=== PATIENT | female | born 1990 | race Two or more races ===

== ENCOUNTER 2021-01-07 11:14 | Observation (INO) | payer MEDICAID ==
[~2021-01-07] VITALS: Ht 152.4 cm; Wt 60.8 kg
== END 2021-01-07 13:28 | disposition home or self-care (01) ==
LOC: LDRP 11:14 → EDBD 11:14
PROVIDERS: ADMIT Obstetrics & Gynecology; ATTEND Obstetrics & Gynecology
DX: O36.5930 Maternal care for other known or suspected poor fetal growth, third trimester, not applicable or unspecified (principal); O99.413 Diseases of the circulatory system complicating pregnancy, third trimester; I49.9 Cardiac arrhythmia, unspecified; O24.419 Gestational diabetes mellitus in pregnancy, unspecified control; Z3A.37 37 weeks gestation of pregnancy
CPT/HCPCS: 59025; 76818; 81002; 82948; 82962; 94760; G0378

== ENCOUNTER 2021-01-13 12:30 | Emergency (ER) | payer MEDICAID ==
[~2021-01-13] VITALS: Ht 165.1 cm; Wt 61.7 kg
[2021-01-13 12:56] VITALS: BP 135/86
[2021-01-13 13:52] LABS: Albumin 2.9 g/dL (3.4-5.0); Calcium 8.9 mg/dL (8.5-10.1)
[2021-01-13 13:56] LABS: BUN/Creatinine Ratio 19.4; Bilirubin, Total 0.3 mg/dL (0.2-1.0); Total Protein 6.9 g/dL (6.4-8.2)
[2021-01-13 14:28] LABS: Basophils # (auto) 0 10 ^3/uL (0-0.2); Basophils % (auto) 0.5 % (0.0-2.0); Eosinophils # (auto) 0.1 10 ^3/uL (0-0.8); Eosinophils % (auto) 0.8 % (0.0-7.0); Hematocrit 38.5 % (36.0-46.0); Hemoglobin 13.4 g/dL (12.2-16.2); Lymphocytes # (auto) 1.7 10 ^3/uL (0.4-5.4); Lymphocytes % (auto) 18.8 % (10.0-50.0); Mean Corpuscular Hemoglobin 32.8 pg (28.0-32.0); Mean Corpuscular Hgb Conc. 34.9 g/dL (32.0-36.0); Mean Corpuscular Volume 94.1 fL (80.0-100.0); Monocytes # (auto) 0.4 10 ^3/uL (0-1.3); Monocytes % (auto) 4.8 % (0.0-12.0); Neutrophils # (auto) 6.9 10 ^3/uL (1.6-8.6); Neutrophils % (auto) 75.1 % (37.0-80.0); Nucleated Red Blood Cells % 0.1 %; Platelet Count (auto) 237 10^3/uL (140-450); Red Blood Cells 4.09 10^6/uL (4.0-5.20); Red Cell Distribution Width 13.1 % (11.8-14.3); White Blood Cell 9.2 10^3/uL (4.4-10.8)
[2021-01-14] MEDS ORDERED: PREN-96 PO (11:12)
[2021-01-14] MEDS ORDERED: FOLI1TAB6 PO (11:12)
== END 2021-01-13 19:54 | disposition left against medical advice (07) ==
LOC: ER 12:30
DX: M25.571 Pain in right ankle and joints of right foot (principal); R22.41 Localized swelling, mass and lump, right lower limb; Z53.21 Procedure and treatment not carried out due to patient leaving prior to being seen by health care provider
CPT/HCPCS: 36415; 80053; 85025; 85049; 93971

== ENCOUNTER 2021-01-14 09:59 | Observation (INO) | payer MEDICAID ==
[~2021-01-14] VITALS: Ht 152.4 cm; Wt 61.7 kg
[2021-01-14] MEDS ORDERED: FOLI1TAB6 PO (11:12)
[2021-01-14] MEDS ORDERED: PREN-96 PO (11:12)
== END 2021-01-14 12:31 | disposition home or self-care (01) ==
LOC: LDRP 09:59
PROVIDERS: ADMIT Obstetrics & Gynecology; ATTEND Obstetrics & Gynecology
DX: O36.5930 Maternal care for other known or suspected poor fetal growth, third trimester, not applicable or unspecified (principal); O24.419 Gestational diabetes mellitus in pregnancy, unspecified control; Z3A.38 38 weeks gestation of pregnancy
CPT/HCPCS: 59025; 76817; 76818; 81002; 82948; 94760; G0378

== ENCOUNTER 2021-01-16 10:21 | Inpatient (IN) | payer MEDICAID ==
[~2021-01-16] VITALS: Ht 152.4 cm; Wt 62.1 kg
[~2021-01-16 10:21] MED LIST: FOLI1TAB6 PO; PREN-96 PO
[2021-01-16] MEDS ORDERED: DERMOPLAST 60ML BOTTLE TOP PRN (10:30)
[2021-01-16] MEDS ORDERED: PHISODERM TOP SOLN 240ML BTL TOP PRN (10:30)
[2021-01-16] MEDS ORDERED: LIDOCAINE 2%HCL (LOCAL ANESTH.) INJ 20ML MDV IJ PRN (10:30)
[2021-01-16] MEDS ORDERED: LACT. RINGERS/OXYTOCIN 20UNITS 500 ML IV ONE ×2 (10:45→11:15)
[2021-01-16] MEDS ORDERED: TERBUTALINE SULFATE 1 MG/ML 1ML VIAL SC ONE (10:45)
[2021-01-16] MEDS ORDERED: LACT. RINGERS/OXYTOCIN 20UNITS 1,000 ML IV SCH (10:45)
[2021-01-16 11:22] VITALS: BP 129/79
[2021-01-16] MEDS ORDERED: ACCU-CHEK COMFORT CURVE STRIP VI SCH (11:30)
[2021-01-16 11:32] LABS: Basophils # (auto) 0.1 10 ^3/uL (0-0.2); Eosinophils # (auto) 0.2 10 ^3/uL (0-0.8); Eosinophils % (auto) 1.8 % (0.0-7.0); Hematocrit 38.1 % (36.0-46.0); Hemoglobin 13.4 g/dL (12.2-16.2); Lymphocytes % (auto) 18.4 % (10.0-50.0); Mean Corpuscular Hemoglobin 33.3 pg (28.0-32.0); Mean Corpuscular Hgb Conc. 35.2 g/dL (32.0-36.0); Mean Corpuscular Volume 94.5 fL (80.0-100.0); Monocytes # (auto) 0.7 10 ^3/uL (0-1.3); Monocytes % (auto) 6.2 % (0.0-12.0); Neutrophils # (auto) 7.9 10 ^3/uL (1.6-8.6); Neutrophils % (auto) 72.6 % (37.0-80.0); Nucleated Red Blood Cells % 0.1 %; Platelet Count (auto) 238 10^3/uL (140-450); Red Blood Cells 4.03 10^6/uL (4.0-5.20); Red Cell Distribution Width 13.2 % (11.8-14.3); White Blood Cell 10.9 10^3/uL (4.4-10.8)
[2021-01-16 11:39] LABS: Urine Bacteria FEW /hpf (None Seen); Urine Blood Negative /uL (Negative); Urine Mucus FEW (None Seen); Urine Specific Gravity 1.028 (1.001-1.035); Urine WBC 17 /hpf (0 - 5)
[2021-01-16 11:45] LABS: Calcium 9.1 mg/dL (8.5-10.1); Potassium 4.1 mmol/L (3.5-5.1)
[2021-01-16 11:48] LABS: INR 0.87 (0.9-1.15); Partial Thromboplastin Time 24.8 sec (23.0-31.2)
[2021-01-16 11:49] LABS: BUN/Creatinine Ratio 21.1; Bilirubin, Total 0.4 mg/dL (0.2-1.0)
[2021-01-16] MEDS: LACTATED RINGER'S 1,000 ML IV SCH ×2 (11:53→17:10)
[2021-01-16 11:56] LABS: Alcohol, Urine < 3.0 mg/dL (0-10); Amphetamine Screen, Urine NEGATIVE (NEGATIVE); Barbiturate Scree,Urine NEGATIVE (NEGATIVE); Benzodiazephine Screen, Urine NEGATIVE (NEGATIVE); Cannabinoid Screen, Urine NEGATIVE (NEGATIVE); Cocaine Screen, Urine NEGATIVE (NEGATIVE); Opiate Scree,Urine NEGATIVE (NEGATIVE); Phencyclidine Screen, Urine NEGATIVE (NEGATIVE)
[2021-01-16] MEDS ORDERED: miSOPROStol 50 MCG per PRE-CUT 1/2 TAB PO PRN (12:30)
[2021-01-16] MEDS: ACCU-CHEK COMFORT CURVE STRIP VI SCH ×2 (19:00→23:23)
[2021-01-17] MEDS: LACTATED RINGER'S 1,000 ML IV SCH ×2 (02:12→09:46)
[2021-01-17] MEDS: ACCU-CHEK COMFORT CURVE STRIP VI SCH (02:16)
[2021-01-17] MEDS ORDERED: BUTORPHANOL TARTRATE 2 MG/1 ML VIAL IV PRN (09:15)
[2021-01-17] MEDS ORDERED: PROMETHAZINE HCL 25 MG/ML 1ML IV PRN (09:15)
[2021-01-17] MEDS ORDERED: LIDOCAINE 2%HCL (LOCAL ANESTH.) INJ 20ML MDV ONE (10:03)
[2021-01-17] MEDS: WITCH HAZEL-GLYCERIN PAD TOP PRN ×2 (10:44→12:45)
[2021-01-17] MEDS ORDERED: IBUPROFEN 600 MG TAB PO PRN (11:00)
[2021-01-17 12:00] VITALS: BP 122/60
[2021-01-17] MEDS ORDERED: ACETAMINOPHEN 325 MG TAB PO PRN (13:15)
[2021-01-17 16:00] VITALS: BP 125/60
[2021-01-17 19:00] VITALS: BP 121/60
[2021-01-17 23:12] VITALS: BP 118/68
[2021-01-18 03:00] VITALS: BP 100/60
[2021-01-18 06:45] VITALS: BP 119/74
[2021-01-18 10:30] VITALS: BP 111/69
[2021-01-20 04:06] LABS: RPR Non Reactive (Non Reactive)
== END 2021-01-18 13:05 | disposition home or self-care (01) | DRG 560 ==
LOC: LDRP 10:21
PROVIDERS: ADMIT Specialist; ATTEND Specialist
PROC: 10E0XZZ Delivery of Products of Conception, External Approach (ICD-10-PCS; principal; 2021-01-17)
PROC: 0HQ9XZZ Repair Perineum Skin, External Approach (ICD-10-PCS; 2021-01-17)
DX: O36.5930 Maternal care for other known or suspected poor fetal growth, third trimester, not applicable or unspecified (principal); O70.0 First degree perineal laceration during delivery; Z37.0 Single live birth; Z3A.39 39 weeks gestation of pregnancy; Z20.822 Contact with and (suspected) exposure to COVID-19
CPT/HCPCS: 36415; 59025; 59409; 80053; 80307; 81001; 81002; 82947; 82948; 82962; 85025; 85049; 85610; 85730; 86592; 86850; 86900; 86901; 87426; 94760; 96360; 96361; 96365; 96366; G0378; J2590

== ENCOUNTER → 2023-04-21 | Outpatient (CLI) | payer MEDICAID ==
[~2023-04-21] MED LIST changes: +FOLI-119 PO; -FOLI1TAB6 PO
[2023-04-21 10:10] LABS: Basophils # (auto) 0 10 ^3/uL (0-0.2); Basophils % (auto) 0.5 % (0.0-2.0); Eosinophils # (auto) 0.1 10 ^3/uL (0-0.8); Hematocrit 37.7 % (36.0-46.0); Hemoglobin 12.9 g/dL (12.2-16.2); Lymphocytes # (auto) 1.7 10 ^3/uL (0.4-5.4); Lymphocytes % (auto) 25.6 % (10.0-50.0); Mean Corpuscular Hemoglobin 32.3 pg (28.0-32.0); Mean Corpuscular Hgb Conc. 34.2 g/dL (32.0-36.0); Mean Corpuscular Volume 94.7 fL (80.0-100.0); Monocytes # (auto) 0.5 10 ^3/uL (0-1.3); Monocytes % (auto) 7.4 % (0.0-12.0); Neutrophils # (auto) 4.4 10 ^3/uL (1.6-8.6); Neutrophils % (auto) 64.5 % (37.0-80.0); Nucleated Red Blood Cells % 0.1 %; Red Blood Cells 3.99 10^6/uL (4.0-5.20); Red Cell Distribution Width 13.8 % (11.8-14.3); White Blood Cell 6.7 10^3/uL (4.4-10.8)
[2023-04-22 10:06] LABS: Treponema Pallidum Ab LC Non Reactive (Non Reactive)
== END | disposition home or self-care (01) ==
LOC: LAB 09:45
PROVIDERS: ATTEND Obstetrics & Gynecology
DX: Z34.80 Encounter for supervision of other normal pregnancy, unspecified trimester (principal); Z3A.00 Weeks of gestation of pregnancy not specified
CPT/HCPCS: 36415; 84112; 85025; 86762

== ENCOUNTER 2023-05-15 09:10 | Observation (INO) | payer MEDICAID | END 2023-05-15 11:30 | disposition home or self-care (01) | LOC: LDRP 09:10 | PROVIDERS: ADMIT Obstetrics & Gynecology; ATTEND Obstetrics & Gynecology | DX: O48.0 Post-term pregnancy (principal); O62.9 Abnormality of forces of labor, unspecified; O26.893 Other specified pregnancy related conditions, third trimester; N89.8 Other specified noninflammatory disorders of vagina; Z3A.40 40 weeks gestation of pregnancy | CPT/HCPCS: 59025; 76818; 81002; 94760; G0378 ==

== ENCOUNTER 2023-05-17 10:50 | Observation (INO) | payer MEDICAID | END 2023-05-17 12:30 | disposition home or self-care (01) | LOC: UNDOADMOB 10:50 → LDRP 10:50 → UNDODISOB 12:30 | PROVIDERS: ADMIT Obstetrics & Gynecology; ATTEND Obstetrics & Gynecology | DX: O48.0 Post-term pregnancy (principal); O62.9 Abnormality of forces of labor, unspecified; O41.03X0 Oligohydramnios, third trimester, not applicable or unspecified; O26.893 Other specified pregnancy related conditions, third trimester; M79.10 Myalgia, unspecified site; Z3A.40 40 weeks gestation of pregnancy | CPT/HCPCS: 59025; 76818; 81002; G0378 ==

== ENCOUNTER 2023-05-17 16:15 | Inpatient (IN) | payer MEDICAID ==
[~2023-05-17] VITALS: Ht 152.4 cm; Wt 63.5 kg
[2023-05-17] MEDS ORDERED: LIDOCAINE 2%HCL (LOCAL ANESTH.) INJ 20ML MDV IJ PRN (16:45)
[2023-05-17] MEDS ORDERED: PHISODERM TOP SOLN 240ML BTL TOP PRN (16:45)
[2023-05-17] MEDS ORDERED: BUTORPHANOL TARTRATE 2 MG/1 ML VIAL IV PRN ×2 (16:45)
[2023-05-17] MEDS ORDERED: DERMOPLAST 60ML BOTTLE TOP PRN (16:45)
[2023-05-17] MEDS ORDERED: WITCH HAZEL-GLYCERIN PAD TOP PRN (16:45)
[2023-05-17] MEDS ORDERED: PROMETHAZINE HCL 25 MG/ML 1ML IV PRN (16:45)
[2023-05-17] MEDS ORDERED: LACT. RINGERS/OXYTOCIN 20UNITS 500 ML IV ONE ×2 (17:00→17:30)
[2023-05-17] MEDS ORDERED: TERBUTALINE SULFATE 1 MG/ML 1ML VIAL SC PRN (17:00)
[2023-05-17] MEDS: LACTATED RINGER'S 1,000 ML IV SCH (17:21)
[2023-05-17 18:20] LABS: Basophils # (auto) 0.1 10 ^3/uL (0-0.2); Basophils % (auto) 0.5 % (0.0-2.0); Eosinophils # (auto) 0.1 10 ^3/uL (0-0.8); Eosinophils % (auto) 0.7 % (0.0-7.0); Hematocrit 35.7 % (36.0-46.0); Lymphocytes # (auto) 2.1 10 ^3/uL (0.4-5.4); Lymphocytes % (auto) 20.8 % (10.0-50.0); Mean Corpuscular Hemoglobin 32.1 pg (28.0-32.0); Mean Corpuscular Hgb Conc. 33.7 g/dL (32.0-36.0); Mean Corpuscular Volume 95.4 fL (80.0-100.0); Monocytes # (auto) 0.6 10 ^3/uL (0-1.3); Monocytes % (auto) 6.1 % (0.0-12.0); Neutrophils # (auto) 7.2 10 ^3/uL (1.6-8.6); Neutrophils % (auto) 71.9 % (37.0-80.0); Red Blood Cells 3.74 10^6/uL (4.0-5.20); Red Cell Distribution Width 14.1 % (11.8-14.3); White Blood Cell 10.1 10^3/uL (4.4-10.8)
[2023-05-17 18:35] LABS: Alanine Aminotransferase 14 U/L (7-40); Albumin 3.9 g/dL (3.2-4.8); Alkaline Phosphatase 207 U/L (46-116); Anion Gap 11 (5-15); Aspartate Aminotransferase 24 U/L (13-40); Bilirubin, Total 0.5 mg/dL (0.2-1.0); Blood Urea Nitrogen 15 mg/dL (9-23); Carbon Dioxide 21 mmol/L (20-30); Chloride 106 mmol/L (98-107); Glucose 82 mg/dL (74-106); Potassium 3.7 mmol/L (3.5-5.1); Sodium 138 mmol/L (136-145); Total Protein 6.4 g/dL (5.7-8.2)
[2023-05-17 18:36] LABS: INR 0.9 (0.9-1.15); Partial Thromboplastin Time 26.8 SEC (24.5-34.5); Prothrombin Time 9.5 sec (9.3-11.8)
[2023-05-17 19:11] LABS: Urine Bacteria FEW /hpf (None Seen); Urine Blood TRACE /uL (Negative); Urine Clarity HAZY (Clear); Urine Color Colorless (Yellow); Urine Mucus FEW (None Seen); Urine Protein, UAD TRACE (Negative); Urine Specific Gravity 1.018 (1.001-1.035); Urine Urobilinogen Normal (Negative); Urine WBC 64 /hpf (0 - 5); Urine pH 6.5 (5.0-8.0)
[2023-05-17 19:19] LABS: Amphetamine Screen, Urine Neg (NEGATIVE); Barbiturate Scree,Urine Neg (NEGATIVE); Benzodiazephine Screen, Urine Neg (NEGATIVE); Cannabinoid Screen, Urine Neg (NEGATIVE); Cocaine Screen, Urine Neg (NEGATIVE); Opiate Scree,Urine Neg (NEGATIVE); Phencyclidine Screen, Urine Neg (NEGATIVE)
[2023-05-18] MEDS: LACTATED RINGER'S 1,000 ML IV SCH ×3 (00:18→22:08)
[2023-05-18] MEDS ORDERED: LACT. RINGERS/OXYTOCIN 20UNITS 1,000 ML IV SCH (04:00)
[2023-05-18] MEDS: ceFAZolin 1GM/50ML 50 ML IV SCH ×3 (05:58→22:08)
[2023-05-18] MEDS ORDERED: METHYLERGONOVINE MALEATE 0.2 MG/ML AMP IM ONE ×2 (09:07→09:30)
[2023-05-18] MEDS ORDERED: ACETAMINOPHEN 325 MG TAB PO PRN (09:30)
[2023-05-18] MEDS ORDERED: LACT. RINGERS/OXYTOCIN 20UNITS 500 ML IV ONE ×2 (09:30→10:00)
[2023-05-18] MEDS ORDERED: ONDANSETRON ODT 4 MG TAB PO PRN (09:30)
[2023-05-18] MEDS: IBUPROFEN 800 MG TAB PO SCH ×2 (13:48→18:42)
[2023-05-18 15:00] VITALS: BP 121/81; PULSE 92; RESP 18; TEMP 98.2
[2023-05-18 18:30] VITALS: BP 130/60; PULSE 74; RESP 18; TEMP 97.7; O2SAT 97
[2023-05-18] MEDS ORDERED: DOCUSATE SOD 100 MG CAP PO SCH (22:00)
[2023-05-18 23:00] VITALS: BP 106/67; PULSE 70; RESP 18; TEMP 97.7; O2SAT 98
[2023-05-19] MEDS: IBUPROFEN 800 MG TAB PO SCH ×2 (00:26→06:00)
[2023-05-19 03:06] VITALS: BP 101/70; PULSE 68; RESP 18; TEMP 97.7; O2SAT 98
[2023-05-19 05:08] LABS: RPR Non Reactive (Non Reactive)
[2023-05-19 07:30] VITALS: BP 111/66; PULSE 63; RESP 18; TEMP 98.4; O2SAT 98
[2023-05-19] MEDS ORDERED: DOCU-94 PO (08:14)
[2023-05-22 23:06] LABS: Treponema pallidum Ab (FTA-Ab) Non Reactive (Non Reactive)
== END 2023-05-19 10:32 | disposition home or self-care (01) | DRG 560 ==
LOC: LDRP 16:15
PROVIDERS: ADMIT Obstetrics & Gynecology; ATTEND Obstetrics & Gynecology
PROC: 10D07Z6 Extraction of Products of Conception, Vacuum, Via Natural or Artificial Opening (ICD-10-PCS; principal; 2023-05-18)
PROC: 10907ZC Drainage of Amniotic Fluid, Therapeutic from Products of Conception, Via Natural or Artificial Opening (ICD-10-PCS; 2023-05-18)
PROC: 0W8NXZZ Division of Female Perineum, External Approach (ICD-10-PCS; 2023-05-18)
PROC: 0KQM0ZZ Repair Perineum Muscle, Open Approach (ICD-10-PCS; 2023-05-18)
DX: O48.0 Post-term pregnancy (principal); Z37.0 Single live birth; O41.03X0 Oligohydramnios, third trimester, not applicable or unspecified; Z3A.40 40 weeks gestation of pregnancy; O77.0 Labor and delivery complicated by meconium in amniotic fluid; O62.2 Other uterine inertia; O90.1 Disruption of perineal obstetric wound
CPT/HCPCS: 36415; 59025; 59409; 80053; 80307; 81001; 81002; 85025; 85610; 85730; 86592; 86850; 86900; 86901; 94760; 94762; 96360; 96361; 96365; 96366; G0378; J0690; J2590

== ENCOUNTER 2023-07-31 19:13 | Emergency (ER) | payer MEDICAID ==
[~2023-07-31] VITALS: Ht 289.8 cm; Wt 100.0 kg
[~2023-07-31 19:13] MED LIST changes: +DOCU-94 PO
[2023-07-31] MEDS ORDERED: ACETAMINOPHEN 325 MG TAB PO ONE (20:30)
[2023-07-31 21:29] LABS: COVID19 ANTIGEN SOFIA FIA NEGATIVE (NEGATIVE); Rapid Influenza A Negative (Negative); Rapid Influenza B Negative (Negative)
[2023-08-01] MEDS ORDERED: AZIT-43 PO (00:47)
[2023-08-01] MEDS ORDERED: ACET500T58 PO (00:47)
[2023-08-01 06:41] VITALS: BP 146/83; PULSE 113; RESP 18; TEMP 100; O2SAT 95
== END 2023-08-01 00:47 | disposition home or self-care (01) ==
LOC: ER 19:13
DX: J06.9 Acute upper respiratory infection, unspecified (principal); Z20.822 Contact with and (suspected) exposure to COVID-19
CPT/HCPCS: 36415; 87426; 87804